=== PATIENT | female | born 1975 | race Caucasian/White ===

== ENCOUNTER 2020-10-19 22:04 | Emergency (ER) | payer OTHER ==
[2020-10-19 23:23] LABS: HEMOGLOBIN 14.6 gm/dl (12.3-15.3); RED BLOOD COUNT 4.98 M/UL (4.00-5.10); WHITE BLOOD COUNT 14.4 K/UL (4.5-11.0)
[2020-10-19 23:43] LABS: BUN/CREATININE RATIO 11 (0-10)
== END 2020-10-20 12:25 | disposition other institution (70) ==
LOC: ER1 22:04
PROVIDERS: Physician Assistant
DX: F11.10 Opioid abuse, uncomplicated (principal); R45.851 Suicidal ideations; R55 Syncope and collapse; R11.10 Vomiting, unspecified; H91.3 Deaf nonspeaking, not elsewhere classified; Z87.442 Personal history of urinary calculi; Z91.5 Personal history of self-harm; Z20.822 Contact with and (suspected) exposure to COVID-19
CPT/HCPCS: 71045; 80053; 80307; 84703; 85025; 93005; 96374; 96375; 96376; 99284; G0480; J1885; J2060; J2405; U0002

== ENCOUNTER 2021-03-26 19:33 | Emergency (ER) | payer OTHER ==
[2021-03-26 21:03] LABS: HEMOGLOBIN 14.6 gm/dl (12.3-15.3); RED BLOOD COUNT 4.82 M/UL (4.00-5.10); WHITE BLOOD COUNT 13.3 K/UL (4.5-11.0)
[2021-03-26 21:24] LABS: BUN/CREATININE RATIO 16 (0-10)
== END 2021-03-27 00:38 | disposition home or self-care (01) ==
LOC: ER1 19:33
PROVIDERS: Physician Assistant Medical
DX: H91.3 Deaf nonspeaking, not elsewhere classified (principal); F19.10 Other psychoactive substance abuse, uncomplicated; Z20.822 Contact with and (suspected) exposure to COVID-19; Z90.89 Acquired absence of other organs; Z87.442 Personal history of urinary calculi
CPT/HCPCS: 80053; 80307; 81001; 84703; 85025; 96374; 99284; G0480; J2405; U0002

== ENCOUNTER 2022-03-25 18:30 | Emergency (ER) | payer OTHER | END 2022-03-25 19:20 | disposition left against medical advice (07) | LOC: ER1 18:30 | DX: Z53.21 Procedure and treatment not carried out due to patient leaving prior to being seen by health care provider (principal) ==